=== PATIENT | male | born 2000 | race Caucasian/White ===

== ENCOUNTER 2020-04-01 15:43 | Emergency (ER) | payer OTHER ==
[~2020-04-01] VITALS: Ht 162.5 cm; Wt 69.9 kg
== END 2020-04-01 17:11 | disposition home or self-care (01) ==
LOC: ED 15:43
DX: J02.8 Acute pharyngitis due to other specified organisms (principal); Z88.1 Allergy status to other antibiotic agents; Z91.013 Allergy to seafood; Z87.891 Personal history of nicotine dependence